=== PATIENT | female | born 1950 | race Caucasian/White ===

== ENCOUNTER 2017-06-05 15:58 | Emergency (ER) | payer MEDICARE, MEDICAID, OTHER ==
[2017-06-05] MEDS: FLUORESCEIN STRIP BOTH EYES (18:24)
[2017-06-05] MEDS: TETRACAINE 0.5% 4 ML OPH BOTH EYES (18:24)
== END 2017-06-05 19:22 | disposition home or self-care (01) ==
LOC: FTE 15:58
DX: H10.13 Acute atopic conjunctivitis, bilateral (principal)
CPT/HCPCS: 99283